=== PATIENT | male | born 1980 | race Caucasian/White ===

== ENCOUNTER 2016-11-01 14:03 | Inpatient (IN) | payer OTHER ==
[~2016-11-01] VITALS: Ht 180.3 cm; Wt 116.3 kg
[2016-11-01 14:57] LABS: EOSINOPHIL (%) 0.2 % (0-5); HEMATOCRIT 45.3 % (38.0-50.0); IMMATURE GRANULOCYTE (%) 0.1 % (0.0-0.7); IMMATURE GRANULOCYTE COUNT 0.1 K/uL; LYMPHOCYTE COUNT 1.8 K/uL (1.0-2.8); MCH 30.3 PG (29.0-34.0); MCHC 34.7 G/DL (30.0-36.0); MCV 87.5 FL (86-99); MEAN PLAT.VOLUME 10.9 uM^3 (9.0-12.4); MONOCYTE (%) 5.2 % (3-12); MONOCYTE COUNT 0.5 K/uL (0-0.8); NEUTROPHIL (%) 74.4 % (45-76); NEUTROPHIL COUNT 6.6 K/uL (1.8-6.4); PLATELET COUNT 181 K/uL (156-360); RBC DIS.WIDTH-CV 12.1 % (11.8-14.6); RBC DIS.WIDTH-SD 38.4 % (39-53); RED BLOOD COUNT 5.18 M/uL (4.00-5.50); WHITE BLOOD COUNT 8.9 K/uL (4.1-10.2)
[2016-11-01 15:10] LABS: CHLORIDE 106 mEq/L (99-109); POTASSIUM 3.9 mEq/L (3.7-5.4); SODIUM 141 mEq/L (136-147)
[2016-11-01 15:12] LABS: GLUCOSE 98 mg/dL (70-99)
[2016-11-01 15:13] LABS: ANION GAP 9 MEQ/L (2-14)
[2016-11-01 15:15] LABS: SERUM ETHYL ALCOHOL < 10 mg/dL
[2016-11-01 15:16] LABS: ALKALINE PHOSPHATASE 82 IU/L (3-129); GFR ESTIMATE (CALCULATED) > 59 mL/min/
[2016-11-01 15:17] LABS: UREA NITROGEN (BUN) 13 mg/dL (9-23)
[2016-11-01 15:41] LABS: AMPHETAMINE NEGATIVE (500 ng/mL); BARBITURATES NEGATIVE (200 ng/mL); BENZODIAZEPINES NEGATIVE (150 ng/mL); COCAINE NEGATIVE (150 ng/mL); INTERNAL CONTROLS VALID? YES; METHADONE NEGATIVE (200 ng/mL); METHAMPHETAMINE NEGATIVE (500 ng/mL); OPIATES (MORPHINE) NEGATIVE (100 ng/mL); OXYCODONE NEGATIVE (100 ng/mL); PHENCYCLIDINE NEGATIVE (25 ng/mL); PROPOXYPHENE NEGATIVE (300 ng/mL); THC CANNABINOIDS NEGATIVE (50 ng/mL); TRICYCLIC ANTIDEPRESSANTS NEGATIVE (300 ng/mL)
[2016-11-01 17:24] VITALS: BP 129/80
[2016-11-02 08:05] VITALS: BP 107/56
[2016-11-02 15:35] VITALS: BP 105/69
[2016-11-03 07:51] VITALS: BP 112/65
[2016-11-03 15:43] VITALS: BP 116/71
[2016-11-04 07:46] VITALS: BP 122/71
== END 2016-11-04 10:47 | disposition home or self-care (01) | DRG 881 ==
LOC: EME 14:03 → EDOF 15:19 → 1WEST 17:12
PROVIDERS: Emergency Medicine
DX: F32.9 Major depressive disorder, single episode, unspecified (principal); R45.851 Suicidal ideations; F10.10 Alcohol abuse, uncomplicated; E66.3 Overweight; Z72.6 Gambling and betting; Z68.35 Body mass index [BMI] 35.0-35.9, adult
CPT/HCPCS: 80053; 85025; 90837; 97150 GO; 97165 GO; 99281; 99285; G0480